=== PATIENT | female | born 1970 | race African-American/Black ===

== ENCOUNTER 2019-07-07 17:56 | Emergency (ER) | payer MEDICARE ==
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
[2019-07-07 18:58] VITALS: BP 145/94
== END 2019-07-07 19:06 | disposition home or self-care (01) ==
LOC: EDBD 17:56 → ED 17:56
DX: E11.9 Type 2 diabetes mellitus without complications (principal); Z79.4 Long term (current) use of insulin
CPT/HCPCS: 99282; 99284